=== PATIENT | female | born 1990 | race Caucasian/White ===

== ENCOUNTER 2016-10-23 12:47 | Emergency (ER) | payer SELFPAY ==
[~2016-10-23] VITALS: Ht 165.1 cm; Wt 63.5 kg
[2016-10-23 12:55] VITALS: BP 149/78
[2016-10-23] MEDS ORDERED: AMOX1TAB61 PO (13:35)
[2016-10-23] MEDS ORDERED: CIPR7.5D AS (13:35)
--- NOTE | 2016-10-23 13:35 | PHYS DOC ---
Past Medical History Past Medical History: No Pertinent History Past Surgical History: Other Additional Past Surgical Histo: BROKEN JAW Alcohol Use: None Drug Use: None Adult General Chief Complaint Chief Complaint: EARACHE/EAR PAIN HPI HPI Patient is a 26 year old female presents emergency department stating that she is having left ear pain and discomfort. She states that she is capable of hearing out of the ear although it sounds muffled. A shunt denies any fever, chills or any nausea or vomiting. She does state however she's had some drainage coming from the ear as well that is yellow in color. Patient denies any lightheadedness or dizziness. Review of Systems Review of Systems Constitutional: Denies fever or chills [] Eyes: Denies change in visual acuity, redness, or eye pain [] HENT: Denies nasal congestion or sore throat. Co left ear pain and discharge Respiratory: Denies cough or shortness of breath [] Cardiovascular: No additional information not addressed in HPI [] Musculoskeletal: Denies back pain or joint pain [] Integument: Denies rash or skin lesions [] Neurologic: Denies headache, focal weakness or sensory changes [] Allergies Allergies Allergies Coded Allergies Type Severity Reaction Last Updated Verified No Known Drug Allergies 10/23/16 No Physical Exam Physical Exam Constitutional: Well developed, well nourished, no acute distress, non-toxic appearance. [] HENT: Normocephalic, atraumatic, bilateral external ears normal, oropharynx moist, no oral exudates, nose normal. Right tympanic membrane is normal left tympanic membrane and to visualize due to the swelling of the left ear canal. Patient does appear to have yellow drainage noted around the ear. Throat appears to be intact with no erythematous drainage or discharge noted. Eyes: PERRLA, EOMI, conjunctiva normal, no discharge. [] Neck: Normal range of motion, no tenderness, supple, no stridor. [] Cardiovascular:Heart rate regular rhythm, no murmur [] Lungs & Thorax: Bilateral breath sounds clear to auscultation [] Skin: Warm, dry, no erythema, no rash. [] Back: No tenderness Extremities: No tenderness, no cyanosis, no clubbing, ROM intact, no edema. [] Neurologic: Alert and oriented X 3, normal motor function, normal sensory function, no focal deficits noted. [] Psychologic: Affect normal, judgement normal, mood normal. [] Current Patient Data Vital Signs Vital Signs Date Time Temp Pulse Resp B/P Pulse Ox O2 Delivery O2 Flow Rate FiO2 10/23/16 12:55 98.1 127 18 98 Room Air 98.1 EKG EKG [] Radiology/Procedures Radiology/Procedures [] Course & Med Decision Making Course & Med Decision Making Pertinent Labs and Imaging studies reviewed. (See chart for details) Patient will be discharged home with Augmentin as well as Ciprodex. Patient will be encouraged follow-up with her primary care physician next week if she is not feeling better. Also recommended Tylenol or ibuprofen for pain and discomfort. Signs and symptoms to return back to emergency department as been provided. Patient agrees with discharge instructions treatment regimens and follow-up recommendations. [] Dragon Disclaimer Dragon Disclaimer This electronic medical record was generated, in whole or in part, using a voice recognition dictation system. Departure Departure Impression: Primary Impression: Otitis externa Disposition: HOME, SELF-CARE Condition: STABLE Patient Instructions: Otitis Externa, [id number] Additional Instructions: Activity as tolerated. Tylenol or ibuprofen for pain and discomfort. Medication as prescribed. Follow-up primary care physician next week if you're not feeling better. Return back to emergency #symptoms of become worse. Scripts Ciprofloxacin Hcl/Dexameth (Ciprodex Otic Suspension)7.5 Ml Drops.susp4 Drop BID #7.[address] in the left ear for the next 7-10 days Prov:REX MAE NP 10/23/16 Amoxicillin/Potassium Clav (Augmentin 875-125 Tablet)1 Each Tablet1 Tab PO BID # 20 TAB Prov:REX MAE NP 10/23/16 REX MAE NP Oct 23, 2016 13:35
== END 2016-10-23 13:49 | disposition home or self-care (01) ==
LOC: ER 12:47
DX: H60.92 Unspecified otitis externa, left ear (principal)
CPT/HCPCS: 99283

== ENCOUNTER 2019-01-08 21:01 | Emergency (ER) | payer SELFPAY ==
[~2019-01-08] VITALS: Ht 167.6 cm; Wt 81.6 kg
[~2019-01-08 21:01] MED LIST: AMOX1TAB61 PO; CIPR7.5D AS
[2019-01-08 21:45] VITALS: BP 166/109
[2019-01-08] MEDS ORDERED: BUPIVAC MPF-EPI 0.5%-1:200000 30 ML VIAL. INJ ONE (23:00)
[2019-01-08] MEDS ORDERED: DEXAMETHASONE 4 MG TABLET PO ONE (23:00)
[2019-01-08] MEDS ORDERED: AMOXICILLIN/K CLAV 875/125MG TABLET. PO ONE (23:00)
[2019-01-08] MEDS ORDERED: AMOX1TAB61 PO (23:01)
[2019-01-08] MEDS ORDERED: CHLO15MO2 PO (23:01)
[2019-01-08] MEDS ORDERED: TRAM-48 PO (23:02)
--- NOTE | 2019-01-08 23:02 | PHYS DOC ---
Past Medical History Past Medical History: No Pertinent History Past Surgical History: Other Additional Past Surgical Histo: BROKEN JAW Alcohol Use: None Drug Use: None Adult General Chief Complaint Chief Complaint: DENTAL PROBLEM HPI HPI Patient is a 28 year old female who presents with tooth pain. She states she's been having left upper jaw/tooth pain for a few days. The pain does not radiate anywhere. She describes the pain as a pressure sensation that is worse with chewing and eating. Ibuprofen has not helped relieve her pain. Patient denies any fevers, chills, nausea or vomiting, ear pain. She denies any drainage from that area of her mouth. Review of Systems Review of Systems Constitutional: Denies fever or chills [] Eyes: Denies change in visual acuity, redness, or eye pain [] HENT: Denies nasal congestion or sore throat [] Respiratory: Denies cough or shortness of breath [] Cardiovascular: No additional information not addressed in HPI [] GI: Denies abdominal pain, nausea, vomiting, bloody stools or diarrhea [] : Denies dysuria or hematuria [] Musculoskeletal: Denies back pain or joint pain [] Integument: Denies rash or skin lesions [] Neurologic: Denies headache, focal weakness or sensory changes [] Endocrine: Denies polyuria or polydipsia [] All other systems were reviewed and found to be within normal limits, except as documented in this note. Current Medications Current Medications Current Medications Medications (Trade) Dose Ordered Sig/Khushbu Start Time Stop Time Status Last Admin Dose Admin Amoxicillin/ Clavulanate Potassium (Augmentin 875/ 125mg) 1 tab 1X ONCE 01/08/19 23:00 01/08/19 23:01 DC 01/08/19 22:28 1 TAB Bupivacaine HCl/ Epinephrine Bitart (Sensorcain-Mpf Epi 0.5%-1:[id number]) 30 ml 1X ONCE 01/08/19 23:00 01/08/19 23:01 DC 01/08/19 22:30 30 ML Dexamethasone (Decadron) 10 mg 1X ONCE 01/08/19 23:00 01/08/19 23:01 DC 01/08/19 22:29 10 MG Allergies Allergies Allergies Coded Allergies Type Severity Reaction Last Updated Verified No Known Drug Allergies 10/23/16 No Physical Exam Physical Exam Constitutional: No acute distress, non-toxic appearance. [] HENT: Normocephalic, atraumatic, bilateral external ears normal, bilateral TMs clear. [] Mouth: Tenderness to left upper posterior gum line and lower teeth. No abscess appreciated. Eyes: EOMI, conjunctiva normal. [] Neck: Normal range of motion, no tenderness, supple, no stridor. [] Cardiovascular:Heart rate regular rhythm, no murmur [] Lungs & Thorax: Bilateral breath sounds clear to auscultation [] Abdomen: Bowel sounds normal, soft, no tenderness. [] Skin: Warm, dry, no erythema, no rash. [] Back: No tenderness, no CVA tenderness. [] Extremities: No tenderness, no edema. [] Neurologic: Alert and oriented X 3, no focal deficits noted. [] Psychologic: Affect normal, judgement normal, mood normal. [] Current Patient Data Vital Signs Vital Signs Date Time Temp Pulse Resp B/P (MAP) Pulse Ox O2 Delivery O2 Flow Rate FiO2 01/08/19 21:45 98.1 100 18 166/109 (128) 95 Room Air 98.1 EKG EKG [] Radiology/Procedures Radiology/Procedures [] Course & Med Decision Making Course & Med Decision Making 28-year-old female presented to the emergency department due to left tooth pain. Patient denies any foul-smelling breath or discharge from her tooth. Examination showed no appreciable abscess. Dental block performed with improvement in pain. Provided patient with pain medication prescription as well as a list of dentist to follow-up with.Patient stable for discharge with outpatient follow-up with PCP. Discussed findings and plan with patient and family, who acknowledge understanding and agreement. (See chart for details) [] Dragon Disclaimer Dragon Disclaimer This electronic medical record was generated, in whole or in part, using a voice recognition dictation system. Additional Procedures Progress Dental block Verbal consent obtained from patient, timeout performed hand hygiene utilized 3 mL of bupivacaine 0.5% with epinephrine infiltrated for superior-posterior alveolar block via 25-gauge hypodermic needle. Patient tolerated procedure well and without difficulty. Interval improvement of pain. Departure Departure Impression: Primary Impression: Dentalgia Disposition: HOME, SELF-CARE Condition: STABLE Referrals: NO PCP (PCP) Patient Instructions: Toothache-Brief Scripts Tramadol Hcl (ULTRAM) 50 Mg Tablet 50 MG PO Q6HRS PRN for PAIN, #6 TAB 0 Refills Prov: CELESTE BERNARDO DO 01/08/19 Amoxicillin/Potassium Clav (AUGMENTIN 875-125 TABLET) 1 Each Tablet 1 TAB PO BID, #14 TAB Prov: CELESTE BERNARDO DO 01/08/19 Chlorhexidine Gluconate (PERIDEX) 15 Ml Mouthwash 15 ML PO BID for 7 Days, #946 ML Prov: CELESTE BERNARDO DO 01/08/19 CELESTE BERNARDO DO Jan 08, 2019 23:02
== END 2019-01-08 23:04 | disposition home or self-care (01) ==
LOC: ER 21:01
DX: K08.89 Other specified disorders of teeth and supporting structures (principal)
CPT/HCPCS: 64400; 99284; J3490; J8540